=== PATIENT | male | born 1990 | race Caucasian/White ===

== ENCOUNTER 2021-07-12 16:34 | Inpatient (IN) | payer OTHER ==
[2021-07-12 18:23] VITALS: BMI 30.7
[2021-07-12] MEDS ORDERED: IBUPROFEN 400 MG TABLET (FP) PO PRN (18:40)
[2021-07-12] MEDS ORDERED: LOPERAMIDE HCL 2 MG CAPSULE PO PRN (18:40)
[2021-07-12] MEDS ORDERED: P-EPHED 60MG/TRIPROLIDI 2.5MG TABLET PO PRN (18:40)
[2021-07-12] MEDS ORDERED: guaiFENesin 200 MG/10 ML 10 ML UNIT-DOSE CUPS PO PRN (18:40)
[2021-07-12] MEDS ORDERED: MAG HYDROX/AL HYDROX/SIMETH 30 ML UNIT-DOSE CUP PO PRN (18:40)
[2021-07-12] MEDS ORDERED: ACETAMINOPHEN 325 MG TABLET (FP) PO PRN (18:40)
[2021-07-12] MEDS ORDERED: MAGNESIUM HYDROX 2400MG/30ML ORAL SUSPENSION 30 ML CUP PO PRN (18:40)
[2021-07-12] MEDS ORDERED: MAGNESIUM CITRATE 300 ML BOTTLE PO PRN (18:40)
[2021-07-13] MEDS: MELATONIN 5 MG TABLETS PO SCH ×2 (00:54→23:45)
[2021-07-13] MEDS: THIAMINE HCL 100 MG TABLET (FP) PO SCH ×2 (00:54→23:45)
[2021-07-13] MEDS: PRENATAL VITAMINS W/ FOLIC ACID TABLET (FP) PO SCH (09:44)
[2021-07-13 11:25] LABS: HEMATOCRIT 30.1 % (35.4-49); MCH 30.8 pg (25.7-33.7); MCHC 33.3 g/dl (32.0-35.9); MEAN CELL VOLUME 92.4 fl (80-96); MEAN PLT VOLUME 8.2 fl (7.5-11.1); PLATELET COUNT 266 10^3/uL (134-434); RBC 3.25 M/mm3 (4.00-5.60); RDW 12.9 % (11.9-15.9); WHITE BLOOD COUNT 5.2 K/mm3 (4.0-10.0)
[2021-07-13 11:52] LABS: CALCIUM 8.6 mg/dL (8.5-10.1)
[2021-07-13 11:53] LABS: ALBUMIN 3.1 g/dl (3.4-5.0); BLOOD UREA NITROGEN 11.7 mg/dL (7-18)
[2021-07-13 11:55] LABS: CREATININE 0.8 mg/dL (0.55-1.3)
[2021-07-13 11:57] LABS: TOT PROT 5.6 g/dl (6.4-8.2)
[2021-07-13 11:58] LABS: BILIRUBIN,TOTAL 0.2 mg/dL (0.2-1)
[2021-07-14 07:30] VITALS: BP 146/88; PULSE 56; TEMP 99
[2021-07-14] MEDS: PRENATAL VITAMINS W/ FOLIC ACID TABLET (FP) PO SCH (10:03)
== END 2021-07-14 13:07 | disposition left against medical advice (07) | DRG 770 ==
LOC: YASAS 16:34 → Y5N 23:57
PROVIDERS: ADMIT Allergy & Immunology; ATTEND Allergy & Immunology
PROC: HZ42ZZZ Group Counseling for Substance Abuse Treatment, Cognitive-Behavioral (ICD-10-PCS; principal; 2021-07-12)
DX: F11.20 Opioid dependence, uncomplicated (principal); F14.10 Cocaine abuse, uncomplicated; F15.10 Other stimulant abuse, uncomplicated; F17.210 Nicotine dependence, cigarettes, uncomplicated
CPT/HCPCS: 36415; 80053; 85027; 86780; C9803; U0003; U0005